=== PATIENT | female | born 1995 | race Caucasian/White ===

== ENCOUNTER 2017-03-20 03:50 | Emergency (ER) | payer BC ==
[~2017-03-20 03:50] MED LIST: ADVAIR 1001 DISK W/D IH; ALBUTEROL2.5 MG/0.5 IH; AMOXICILLIN875 MG PO; AMOXIL875 MG PO; AUGMENTIN875 MG PO; CIPRO500 M2 PO; FLAGYL500 M1 PO; FLONASE16 G1; NO HOME MEDICATION XX; NO MEDICATIONS; NORCO 5-325 TA1 EACH PO; NORCO 5/3251 TAB PO; PERCOCET 5/3251 TAB PO; PREDNISONE20 MG PO; VENTOLIN HFA18 GM IH
[2017-03-20] MEDS ORDERED: PRENATAL-U CAPS1 CAP PO (04:06)
[2017-03-20 04:45] LABS: BASO % 0.2 % (0-2); EOS % 1.6 % (0-7); EOSINOPHIL ABSOLUTE COUNT 0.1 tho/cmm (0.0-0.7); HCT-HEMATOCRIT 36.5 % (34.0-49.0); HGB-HEMOGLOBIN 12.6 gm/dl (12.0-15.5); LYMPH % 27.7 % (20-45); LYMPH ABSOLUTE COUNT 2.3 tho/cmm (0.8-4.5); MCH (MEAN CORPUSCULAR HGB) 29.1 pg (28.0-32.0); MCHC MEAN CORPUSCULAR HGB CONC 34.5 % (32.0-36.0); MCV (MEAN CELL VOLUME) 84.3 fl (82.0-96.0); MEAN PLATELET VOLUME 10.5 cmc (9.4-12.4); MONO % 7.7 % (0-12); MONOCYTE ABSOLUTE COUNT 0.6 tho/cmm (0.0-1.2); NEUTROPHIL ABSOLUTE COUNT 5.1 tho/cmm (1.6-8.0); NEUTROPHIL-AUTOMATED 5.1 tho/cmm (1.6-8.0); NEUTROPHILS % 62.8 % (40-80); PLATELET COUNT 222 tho/cmm (150-450); RED BLOOD COUNT 4.33 mil/cmm (4.00-5.20); RED CELL DISTRIBUTION WIDTH 12.4 % (12.4-16.4); WHITE BLOOD COUNT 8.2 tho/cmm (4.0-10.0)
[2017-03-20 05:54] LABS: URINE BILIRUBIN NEGATIVE (NEG); URINE BLOOD NEGATIVE (NEG); URINE GLUCOSE (UA) NEGATIVE (NEG); URINE KETONE NEGATIVE (NEG); URINE LEUKOCYTE ESTERASE NEGATIVE (NEG); URINE NITRITE NEGATIVE (NEG); URINE PROTEIN NEGATIVE (NEG)
[2017-03-20 05:57] LABS: URINE APPEARANCE CLEAR; URINE COLOR YELLOW
== END 2017-03-20 06:10 ==
LOC: EDMED 03:50
PROVIDERS: Emergency Medicine
DX: O99.89 Other specified diseases and conditions complicating pregnancy, childbirth and the puerperium (principal); R10.2 Pelvic and perineal pain; Z3A.01 Less than 8 weeks gestation of pregnancy